=== PATIENT | male | born 2000 | race Caucasian/White ===

== ENCOUNTER 2019-07-08 16:15 | Emergency (ER) | payer OTHER ==
[~2019-07-08] VITALS: Ht 182.9 cm; Wt 54.4 kg
[2019-07-08] MEDS ORDERED: PROAIR HFA8.5 GM INH (17:18)
[2019-07-08] MEDS ORDERED: PREDNISONE 20 M20 MG PO (17:18)
[2019-07-08] MEDS ORDERED: TESSALON PERLE100 MG PO (17:18)
[2019-07-08] MEDS ORDERED: ALBUTEROL2.5 MG/31 INH (17:45)
[2019-07-08 17:46] VITALS: BP 108/53
== END 2019-07-08 17:46 | disposition home or self-care (01) ==
LOC: ER 16:15
DX: J45.901 Unspecified asthma with (acute) exacerbation (principal); F17.210 Nicotine dependence, cigarettes, uncomplicated; Z88.0 Allergy status to penicillin